=== PATIENT | male | born 1980 | race Caucasian/White ===

== ENCOUNTER 2018-06-11 16:09 | Emergency (ER) | payer OTHER ==
[~2018-06-11] VITALS: Ht 170.2 cm; Wt 73.0 kg
[2018-06-11 16:09] VITALS: BP 104/63
== END 2018-06-11 17:12 | disposition left against medical advice (07) ==
LOC: ER 17:09
DX: H93.232 Hyperacusis, left ear (principal)
CPT/HCPCS: 99281; A4606; Z7610; Z7502